=== PATIENT | female | born 1975 | race Caucasian/White ===

== ENCOUNTER 2025-04-02 18:20 | Emergency (ER) | payer OTHER ==
[~2025-04-02] VITALS: Ht 165.1 cm; Wt 82.0 kg
[~2025-04-02 18:20] MED LIST: ABILIFY5 MG PO; BUSPIRONE HCL15 MG PO; MELATONIN5 M5 PO; OSTERA TABLET1 EACH PO; ZOLOFT50 MG PO
[2025-04-02 19:05] LABS: BASOPHILS 0.8 % (0.1-1.2); EOSINOPHILS 2.1 % (0.7-5.8); LYMPHOCYTES 36.3 % (19.3-51.7); MCH 27.5 PG (25.6-32.2); MCHC 31.9 g/dL (32.2-35.5); MCV 86.2 fL (79.4-94.8); MONOCYTES 6.7 % (4.7-12.5); NEUTROPHILS 53.9 % (34.0-71.1); RBC 4.99 M/uL (3.93-5.22)
[2025-04-02 19:41] LABS: ALCOHOL, MEDICAL <3 mg/dL (<3); ALT (SGPT) 21 U/L (14-59); AST (SGOT) 11 U/L (15-37); GLOMERULAR FILTRATION RATE,EST 104 mL/min (>60); PROTEIN, TOTAL 7.6 g/dL (6.4-8.2); TSH, 3RD GENERATION 1.702 uIU/mL (0.358-3.740); UREA NITROGEN 10 mg/dL (7-18)
[2025-04-02 20:53] VITALS: BP 142/84
== END 2025-04-02 21:00 | disposition home or self-care (01) ==
LOC: ED 18:20
PROVIDERS: Emergency Medicine
DX: Z04.6 Encounter for general psychiatric examination, requested by authority (principal); F17.200 Nicotine dependence, unspecified, uncomplicated; Z79.899 Other long term (current) drug therapy
CPT/HCPCS: 36415; 80053; 80307; 84443; 84703; 85025; 99283; G0480